=== PATIENT | female | born 1945 | race African-American/Black ===

== ENCOUNTER 2020-11-14 08:25 | Emergency (ER) | payer OTHER ==
[2020-11-14 08:36] VITALS: BP 140/80; PULSE 75; TEMP 99.6; BMI 31.5
== END 2020-11-14 11:04 | disposition home or self-care (01) ==
LOC: JER 08:25
DX: U07.1 COVID-19 (principal)
CPT/HCPCS: 71046-TC-FY; 99284-25; C9803; U0003